=== PATIENT | male | born 1995 | race Caucasian/White ===

== ENCOUNTER 2017-12-02 17:45 | Emergency (ER) | payer BC ==
[2017-12-02 18:00] VITALS: BP 124/79
--- NOTE | 2017-12-02 18:32 | UC ---
Respiratory Complaint HPI - HPI Summary HPI Summary: 22-year-old male presents with 2 1/2 weeks of URI symptoms including nasal congestion, sore throat, and nonproductive cough. He was evaluated at the [facility] on 11/29/2017 and started on azithromycin and given Mucinex. He states that last night was having a bad coughing fit and felt the onset of sharp pain to his right chest wall that has persisted. States pain is worse with cough or deep breath. Nonradiating. Denies fever, chills, ear pain or drainage, palpitations, shortness of breath, wheezing, abdominal pain, nausea , or vomiting. - History of Current Complaint Chief Complaint: UCRespiratory Stated Complaint: COUGH,COLD Time Seen by Provider: 12/02/17 17:59 Hx Obtained From: Patient Onset/Duration: Sudden Onset Timing: Constant Severity Initially: Moderate Severity Currently: Moderate Pain Intensity: 6 Character: Cough: Nonproductive Aggravating Factors: Deep Breaths, Other - cough Alleviating Factors: Nothing Associated Signs And Symptoms: Positive: URI, Nasal Congestion. Negative: Dyspnea, Fever, Chills, Wheezing, Hemoptysis - Allergies/Home Medications Allergies/Adverse Reactions: Allergies Allergy/AdvReac Type Severity Reaction Status Date / Time No Known Allergies Allergy Verified 12/02/17 18:00 Home Medications: Home Medications Azithromyxin KIESHA (NF) [Z-Kiesha (Zithromax) 250 mg tabs #6] 2 tab PO .TODAY, THEN 1 DAILY 12/02/17 [History Confirmed 12/02/17] guaiFENesin [Mucinex] 100 mg PO 12/02/17 [History] PMH/Surg Hx/FS Hx/Imm Hx Previously Healthy: Yes - Denies significant PMH - Surgical History Surgical History: None - Family History Family History: Noncontributory - Social History Occupation: Student Lives: Dormitory/Roommates Alcohol Use: Occasionally Substance Use Type: None Smoking Status (MU): Never Smoked Tobacco Review of Systems Constitutional: Negative Skin: Negative Eyes: Negative ENT: Sore Throat, Nasal Discharge Respiratory: Cough Cardiovascular: Negative Gastrointestinal: Negative Is Patient Immunocompromised?: No All Other Systems Reviewed And Are Negative: Yes Physical Exam Triage Information Reviewed: Yes Appearance: Well-Appearing, No Pain Distress, Well-Nourished Vital Signs: Initial Vital Signs Temp 99.2 F 12/02/17 17:57 Pulse 93 12/02/17 17:57 Resp 18 12/02/17 17:57 BP 124/79 12/02/17 17:57 Pulse Ox 100 12/02/17 17:57 Eye Exam: Normal Eyes: Positive: Conjunctiva Clear. Negative: Discharge ENT: Positive: Pharyngeal erythema - Mild, Nasal congestion, TMs normal, Uvula midline. Negative: Nasal drainage, Tonsillar swelling, Tonsillar exudate, Sinus tenderness Neck: Positive: Supple, Nontender, No Lymphadenopathy Respiratory: Positive: Lungs clear, Normal breath sounds, No respiratory distress, Other: - Mild tenderness with palpation to right anterior chest wall. No crepitus. Cardiovascular: Positive: RRR, No Murmur Abdomen Description: Positive: Nontender, No Organomegaly, Soft. Negative: Distended, Guarding Neurological: Positive: Alert Skin Exam: Normal UC Diagnostic Evaluation - Laboratory O2 Sat by Pulse Oximetry: 100 Respiratory Course/Dx - Course Course Of Treatment: 22 year old male presents with 2 1/2 week history of URI symptoms and cough. Had sudden onset of right sided chest wall pain that occurred while coughing. Pain was reproducible with palpation. Bilateral lung sounds clear. Likely musculoskeletal in origin. Will have patient complete his course of azithromycin, use OTC NSAIDs for pain management, and provide him with [facility] to help with cough. He is to follow up at [facility] if symptoms persist. Warning symptoms reviewed with patient. Verbalizes understanding and agrees with POC. - Differential Dx/Diagnosis Provider Diagnoses: acute bronchitis Discharge - Sign-Out/Discharge Documenting (check all that apply): Patient Departure All imaging exams completed and their final reports reviewed: No Studies - Discharge Plan Condition: Stable Disposition: HOME Prescriptions: Benzonatate CAP* [Tessalon 100 MG CAP*] 100 mg PO TID PRN #30 cap PRN Reason: Cough Patient Education Materials: Acute Bronchitis (ED) [facility]] - Additional Instructions: Your symptoms are consistent with an acute bronchitis. The cough associated with bronchitis can linger for several weeks even after treatment. Finish the azithromycin as prescribed. This is a long-acting antibiotic and remains in your system for up to 10 days even though it is only taken for 5 days. I will provide you with a prescription of a cough suppressant called Tessalon Parrish. You may take 1 capsule every 8 hours as needed for cough. Drink plenty of fluids. May use ibuprofen (Advil, Motrin) or naproxen (Aleve) according to directions as needed for aches or pains. Follow up at the [facility] if your symptoms persist for more than 7 days. Seek immediate medical attention in the emergency room if you develop persistent fever greater than 100.5 F, have persistent chest pain, shortness of breath, become weak or dizzy, or have any worsening of symptoms. - Billing Disposition and Condition Condition: STABLE Disposition: Home - Attestation Statements Provider Attestation: Per institutional requirements, I have reviewed the chart, however, I was not consulted specifically or made aware of this patient by the midlevel provider. I did not personally evaluate, interact with , or disposition this patient.
[2017-12-02] MEDS ORDERED: Benzonatate CAP* 100 MG PO ONE (18:40)
== END 2017-12-02 19:00 | disposition home or self-care (01) ==
LOC: UCEAST 17:45
DX: J20.9 Acute bronchitis, unspecified (principal)
CPT/HCPCS: 99202; A9270-GY; G0463